=== PATIENT | male | born 1975 | race African-American/Black ===

== ENCOUNTER 2017-08-10 09:16 | Emergency (ER) | payer MEDICAID ==
[~2017-08-10] VITALS: Ht 175.3 cm; Wt 65.8 kg
[~2017-08-10 09:16] MED LIST: BENZ1TAB2; NORCO; RISP2TAB31; TRAM50TA2; TRAZ100T2; XANAX
[2017-08-10] MEDS ORDERED: SODIUM CHLORIDE 0.9% 1,000 ML IV ONE (09:37)
[2017-08-10 09:52] LABS: Basophils # (auto) 0 uL; Basophils % (auto) 0.6 % (0.0-2.0); Eosinophils # (auto) 0 uL; Eosinophils % (auto) 0.3 % (0.0-7.0); Hematocrit 49.4 % (41.0-53.0); Hemoglobin 16.7 g/dL (13.5-17.5); Lymphocytes # (auto) 1.8 uL; Lymphocytes % (auto) 35.4 % (10.0-50.0); Mean Corpuscular Hemoglobin 31.3 pg (28.0-32.0); Mean Corpuscular Hgb Conc. 33.8 g/dL (32.0-36.0); Mean Corpuscular Volume 92.5 fL (80.0-100.0); Monocytes # (auto) 0.5 uL; Monocytes % (auto) 9.6 % (0.0-12.0); Neutrophils # (auto) 2.7 uL; Neutrophils % (auto) 54.1 % (37.0-80.0); Nucleated Red Blood Cells % 0.1 %; Platelet Count (auto) 266 10^3/uL (140-450); Red Blood Cells 5.34 10^6/uL (4.5-5.90); Red Cell Distribution Width 12.5 % (11.8-14.3)
[2017-08-10 10:10] LABS: Albumin 4.4 g/dL (3.4-5.0); BUN/Creatinine Ratio 5.8; Calcium 9.6 mg/dL (8.5-10.1); Potassium 3.6 mmol/L (3.5-5.1)
[2017-08-10 10:13] LABS: Bilirubin, Total 0.6 mg/dL (0.2-1.0); Total Protein 7.9 g/dL (6.4-8.2)
[2017-08-10 10:19] LABS: Urine Bacteria NONE SEEN /hpf (None Seen); Urine Blood Negative /uL (Negative); Urine Mucus FEW (None Seen); Urine Specific Gravity 1.035 (1.001-1.035); Urine WBC 4 /hpf (0 - 3)
[2017-08-10] MEDS ORDERED: IOHEXOL 300 MG/ML 100ML BOTTLE IJ ONE (11:58)
[2017-08-10] MEDS ORDERED: NALBUPHINE HCL 10 MG/1ml INJECTION IV ONE (12:15)
[2017-08-10 13:25] VITALS: BP 126/76
[2017-08-10 14:26] LABS: Amphetamine Screen, Urine NEGATIVE (NEGATIVE); Barbiturate Scree,Urine NEGATIVE (NEGATIVE); Benzodiazephine Screen, Urine NEGATIVE (NEGATIVE); Cannabinoid Screen, Urine POSITIVE (NEGATIVE); Cocaine Screen, Urine NEGATIVE (NEGATIVE); Opiate Scree,Urine NEGATIVE (NEGATIVE); Phencyclidine Screen, Urine NEGATIVE (NEGATIVE)
== END 2017-08-10 13:51 | disposition home or self-care (01) ==
LOC: ER 09:16
DX: E86.0 Dehydration (principal); F17.210 Nicotine dependence, cigarettes, uncomplicated
CPT/HCPCS: 36415; 71046; 74177; 80053; 80307; 81001; 82962; 85025; 96361; 96374; 99285; J2300; J7030; Q9967

== ENCOUNTER 2017-08-28 11:11 | Emergency (ER) | payer MEDICAID ==
[~2017-08-28] VITALS: Ht 175.3 cm; Wt 65.8 kg
[2017-08-28] MEDS ORDERED: PANTOPRAZOLE 40 MG/10 ML VIAL IV STA (11:45)
[2017-08-28] MEDS ORDERED: PROCHLORPERAZINE EDISYLATE 5 MG/ML 2ML VIAL IV ONE (11:45)
[2017-08-28 12:20] LABS: Basophils # (auto) 0 uL; Basophils % (auto) 0.6 % (0.0-2.0); Eosinophils # (auto) 0.1 uL; Eosinophils % (auto) 0.9 % (0.0-7.0); Hematocrit 46.9 % (41.0-53.0); Lymphocytes % (auto) 36.8 % (10.0-50.0); Mean Corpuscular Hemoglobin 31.5 pg (28.0-32.0); Mean Corpuscular Volume 92.6 fL (80.0-100.0); Monocytes # (auto) 0.4 uL; Monocytes % (auto) 7.7 % (0.0-12.0); Neutrophils # (auto) 2.9 uL; Nucleated Red Blood Cells % 0.2 %; Platelet Count (auto) 264 10^3/uL (140-450); Red Blood Cells 5.07 10^6/uL (4.5-5.90); Red Cell Distribution Width 12.7 % (11.8-14.3); White Blood Cell 5.4 10^3/uL (4.4-10.8)
[2017-08-28] MEDS ORDERED: diphenhdrAMINE HCL 50 MG/1 ML VL ONE (12:35)
[2017-08-28 12:37] LABS: Albumin 4.3 g/dL (3.4-5.0); BUN/Creatinine Ratio 10.5; Bilirubin, Total 0.5 mg/dL (0.2-1.0); Calcium 8.8 mg/dL (8.5-10.1); Potassium 3.8 mmol/L (3.5-5.1)
[2017-08-28] MEDS ORDERED: diphenhdrAMINE HCL 50 MG/1 ML VL IV ONE (12:45)
[2017-08-28 13:09] VITALS: BP 128/63
== END 2017-08-28 13:16 | disposition home or self-care (01) ==
LOC: ER 11:11 → EDBD 11:11 → ER 13:16
DX: R10.13 Epigastric pain (principal); E86.0 Dehydration; F12.10 Cannabis abuse, uncomplicated; F17.210 Nicotine dependence, cigarettes, uncomplicated
CPT/HCPCS: 36415; 80053; 82150; 83690; 85025; 94761; 96374; 96375; 99284; C9113; J0780; J1200

== ENCOUNTER 2018-02-16 16:48 | Emergency (ER) | payer MEDICAID ==
[~2018-02-16] VITALS: Ht 175.3 cm; Wt 68.0 kg
[2018-02-16] MEDS ORDERED: HYDROcodone-ACET 5/325MG TAB PO ONE (21:00)
[2018-02-16 21:24] VITALS: BP 122/74
== END 2018-02-16 21:24 | disposition home or self-care (01) ==
LOC: EDBD 16:48 → EDUNIT# 16:48 → ER 16:50
DX: S80.12XA Contusion of left lower leg, initial encounter (principal); F17.210 Nicotine dependence, cigarettes, uncomplicated; Z79.899 Other long term (current) drug therapy; W18.49XA Other slipping, tripping and stumbling without falling, initial encounter; Y93.89 Activity, other specified; Y99.8 Other external cause status; Y92.89 Other specified places as the place of occurrence of the external cause
CPT/HCPCS: 73590

== ENCOUNTER 2018-07-20 13:55 | Emergency (ER) | payer MEDICAID ==
[~2018-07-20] VITALS: Ht 175.3 cm; Wt 61.2 kg
[2018-07-20 14:38] LABS: Basophils # (auto) 0 uL; Basophils % (auto) 0.9 % (0.0-2.0); Eosinophils # (auto) 0.1 uL; Eosinophils % (auto) 1.6 % (0.0-7.0); Hematocrit 48.5 % (41.0-53.0); Hemoglobin 16.2 g/dL (13.5-17.5); Lymphocytes % (auto) 44.9 % (10.0-50.0); Mean Corpuscular Hemoglobin 31.6 pg (28.0-32.0); Mean Corpuscular Hgb Conc. 33.5 g/dL (32.0-36.0); Mean Corpuscular Volume 94.3 fL (80.0-100.0); Monocytes # (auto) 0.5 uL; Neutrophils # (auto) 1.8 uL; Neutrophils % (auto) 41.6 % (37.0-80.0); Nucleated Red Blood Cells % 0.2 %; Platelet Count (auto) 269 10^3/uL (140-450); Red Blood Cells 5.15 10^6/uL (4.5-5.90); Red Cell Distribution Width 12.4 % (11.8-14.3); White Blood Cell 4.3 10^3/uL (4.4-10.8)
[2018-07-20 14:44] LABS: Alanine Aminotransferase 24 U/L (16-61); Albumin 3.9 g/dL (3.4-5.0); Amylase 76 U/L (25-115); Anion Gap 1 (5-15); Aspartate Aminotransferase 15 U/L (15-37); Blood Urea Nitrogen 9 mg/dL (7-18); Calcium 8.5 mg/dL (8.5-10.1); Carbon Dioxide 31 mmol/L (21-32); Chloride 107 mmol/L (98-107); Glucose 54 mg/dL (74-106); Lipase 213 U/L (73-393); Potassium 3.8 mmol/L (3.5-5.1); Sodium 139 mmol/L (136-145)
[2018-07-20 14:47] LABS: Alkaline Phosphatase 59 U/L (45-117); BUN/Creatinine Ratio 8.3; Bilirubin, Total 0.4 mg/dL (0.2-1.0); GFR African American > 60 mL/min; GFR Non-African American > 60 mL/min; Total Protein 7.2 g/dL (6.4-8.2)
[2018-07-20] MEDS ORDERED: KETOROLAC TROMETH 60MG/2ML VIAL IM ONE (15:15)
[2018-07-20] MEDS ORDERED: ONDANSETRON ODT 4 MG TAB PO ONE (15:15)
[2018-07-20 16:07] LABS: Alcohol, Urine < 3.0 mg/dL (0-5); Amphetamine Screen, Urine NEGATIVE (NEGATIVE); Barbiturate Scree,Urine NEGATIVE (NEGATIVE); Benzodiazephine Screen, Urine NEGATIVE (NEGATIVE); Cannabinoid Screen, Urine POSITIVE (NEGATIVE); Cocaine Screen, Urine NEGATIVE (NEGATIVE); Opiate Scree,Urine NEGATIVE (NEGATIVE); Phencyclidine Screen, Urine NEGATIVE (NEGATIVE)
[2018-07-20 16:15] LABS: Urine Bacteria NONE SEEN /hpf (None Seen); Urine Blood Negative /uL (Negative); Urine Mucus FEW (None Seen); Urine WBC 1 /hpf (0 - 3)
[2018-07-20] MEDS ORDERED: ASPirin 81 mg TAB PO ONE (16:30)
[2018-07-20 16:48] VITALS: BP 126/80
== END 2018-07-20 16:56 | disposition home or self-care (01) ==
LOC: ER 14:03
DX: F12.90 Cannabis use, unspecified, uncomplicated (principal); R10.13 Epigastric pain; R11.2 Nausea with vomiting, unspecified; M79.605 Pain in left leg; M79.604 Pain in right leg; F17.210 Nicotine dependence, cigarettes, uncomplicated; Z79.899 Other long term (current) drug therapy
CPT/HCPCS: 36415; 74176; 80053; 80307; 81001; 82150; 83690; 84484; 85025; 93005; 96372; 99284; J1885; Q0162

== ENCOUNTER 2018-07-23 11:21 | Emergency (ER) | payer MEDICAID ==
[~2018-07-23] VITALS: Ht 175.3 cm; Wt 61.2 kg
[2018-07-23] MEDS ORDERED: SODIUM CHLORIDE 0.9% 1,000 ML IV ONE ×2 (11:26)
[2018-07-23] MEDS ORDERED: PROCHLORPERAZINE EDISYLATE 5 MG/ML 2ML VIAL IV ONE (11:30)
[2018-07-23] MEDS ORDERED: HALOPERIDOL LACTATE 5 MG/ML INJ VIAL IM ONE (11:30)
[2018-07-23] MEDS ORDERED: PANTOPRAZOLE 40 MG/10 ML VIAL IV ONE (11:30)
[2018-07-23 11:43] VITALS: BP 140/78
[2018-07-23 12:20] LABS: Basophils # (auto) 0 uL; Basophils % (auto) 0.5 % (0.0-2.0); Eosinophils # (auto) 0 uL; Eosinophils % (auto) 0.8 % (0.0-7.0); Hematocrit 48.6 % (41.0-53.0); Hemoglobin 16.8 g/dL (13.5-17.5); Lymphocytes # (auto) 1.9 uL; Lymphocytes % (auto) 39.6 % (10.0-50.0); Mean Corpuscular Hgb Conc. 34.5 g/dL (32.0-36.0); Mean Corpuscular Volume 92.6 fL (80.0-100.0); Monocytes # (auto) 0.5 uL; Monocytes % (auto) 9.3 % (0.0-12.0); Neutrophils # (auto) 2.4 uL; Neutrophils % (auto) 49.8 % (37.0-80.0); Nucleated Red Blood Cells % 0.1 %; Platelet Count (auto) 262 10^3/uL (140-450); Red Blood Cells 5.25 10^6/uL (4.5-5.90); Red Cell Distribution Width 12.5 % (11.8-14.3); White Blood Cell 4.9 10^3/uL (4.4-10.8)
[2018-07-23 12:38] LABS: Alanine Aminotransferase 28 U/L (16-61); Albumin 3.9 g/dL (3.4-5.0); Amylase 90 U/L (25-115); Anion Gap 8 (5-15); Aspartate Aminotransferase 19 U/L (15-37); BUN/Creatinine Ratio 10.5; Blood Urea Nitrogen 13 mg/dL (7-18); Calcium 8.9 mg/dL (8.5-10.1); Carbon Dioxide 26 mmol/L (21-32); Chloride 105 mmol/L (98-107); GFR African American > 60 mL/min; GFR Non-African American > 60 mL/min; Glucose 98 mg/dL (74-106); Lipase 226 U/L (73-393); Potassium 3.8 mmol/L (3.5-5.1); Sodium 139 mmol/L (136-145)
[2018-07-23 12:40] LABS: Alkaline Phosphatase 61 U/L (45-117); Bilirubin, Total 0.4 mg/dL (0.2-1.0); Total Protein 7.5 g/dL (6.4-8.2)
== END 2018-07-23 12:33 | disposition left against medical advice (07) ==
LOC: EDBD 11:21 → ER 11:21
DX: R11.2 Nausea with vomiting, unspecified (principal); R10.13 Epigastric pain; F17.210 Nicotine dependence, cigarettes, uncomplicated; F12.90 Cannabis use, unspecified, uncomplicated; Z79.899 Other long term (current) drug therapy; Z53.29 Procedure and treatment not carried out because of patient's decision for other reasons
CPT/HCPCS: 36415; 80053; 82150; 83690; 85025; 96361; 96374; 96375; 99283; C9113; J0780; J7030

== ENCOUNTER 2019-02-17 12:21 | Emergency (ER) | payer MEDICAID ==
[~2019-02-17] VITALS: Ht 175.3 cm; Wt 65.8 kg
[2019-02-17] MEDS ORDERED: KETOROLAC TROMETH 30 MG/ML 1ML VIAL IV ONE (15:45)
[2019-02-17] MEDS ORDERED: SODIUM CHLORIDE 0.9% 1,000 ML IV ONE (15:45)
[2019-02-17] MEDS ORDERED: ONDANSETRON HCL 4 MG/2 ML VIAL IV ONE (16:00)
[2019-02-17 16:06] LABS: Basophils # (auto) 0 uL; Basophils % (auto) 0.7 % (0.0-2.0); Eosinophils # (auto) 0 uL; Hematocrit 49.3 % (41.0-53.0); Hemoglobin 16.7 g/dL (13.5-17.5); Lymphocytes # (auto) 1.1 uL; Lymphocytes % (auto) 29.6 % (10.0-50.0); Mean Corpuscular Hemoglobin 31.9 pg (28.0-32.0); Mean Corpuscular Hgb Conc. 33.9 g/dL (32.0-36.0); Mean Corpuscular Volume 94.1 fL (80.0-100.0); Monocytes # (auto) 0.4 uL; Monocytes % (auto) 12.1 % (0.0-12.0); Neutrophils # (auto) 2.1 uL; Neutrophils % (auto) 56.6 % (37.0-80.0); Nucleated Red Blood Cells % 0.1 %; Platelet Count (auto) 222 10^3/uL (140-450); Red Blood Cells 5.24 10^6/uL (4.5-5.90); Red Cell Distribution Width 12.7 % (11.8-14.3); White Blood Cell 3.7 10^3/uL (4.4-10.8)
[2019-02-17 16:18] LABS: BUN/Creatinine Ratio 9.8; Calcium 8.9 mg/dL (8.5-10.1); Potassium 3.9 mmol/L (3.5-5.1)
[2019-02-17 17:18] VITALS: BP 118/72
== END 2019-02-17 17:17 | disposition home or self-care (01) ==
LOC: ER 12:21
DX: R51 Headache (principal); M79.10 Myalgia, unspecified site; R11.2 Nausea with vomiting, unspecified; R42 Dizziness and giddiness; F17.210 Nicotine dependence, cigarettes, uncomplicated; Z79.899 Other long term (current) drug therapy
CPT/HCPCS: 36415; 70450; 80048; 85025; 96361; 96374; 96375; 99284; J1885; J2405; J7030

== ENCOUNTER 2019-11-02 14:01 | Emergency (ER) | payer MEDICAID ==
[~2019-11-02] VITALS: Ht 175.3 cm; Wt 68.0 kg
[~2019-11-02 14:01] MED LIST changes: -TRAZ100T2; +TRAZ100T3
[2019-11-02 14:12] VITALS: BP 106/71
[2019-11-02 14:56] LABS: Basophils # (auto) 0 10 ^3/uL (0-0.2); Basophils % (auto) 0.7 % (0.0-2.0); Eosinophils # (auto) 0 10 ^3/uL (0-0.8); Eosinophils % (auto) 0.3 % (0.0-7.0); Hematocrit 45.1 % (41.0-53.0); Hemoglobin 15.1 g/dL (13.5-17.5); Lymphocytes # (auto) 1.8 10 ^3/uL (0.4-5.4); Lymphocytes % (auto) 33.5 % (10.0-50.0); Mean Corpuscular Hgb Conc. 33.5 g/dL (32.0-36.0); Mean Corpuscular Volume 92.4 fL (80.0-100.0); Monocytes # (auto) 0.4 10 ^3/uL (0-1.3); Monocytes % (auto) 7.9 % (0.0-12.0); Neutrophils # (auto) 3.1 10 ^3/uL (1.6-8.6); Neutrophils % (auto) 57.6 % (37.0-80.0); Nucleated Red Blood Cells % 0.1 %; Platelet Count (auto) 232 10^3/uL (140-450); Red Blood Cells 4.88 10^6/uL (4.5-5.90); Red Cell Distribution Width 13.3 % (11.8-14.3); White Blood Cell 5.5 10^3/uL (4.4-10.8)
[2019-11-02 15:13] LABS: Albumin 3.8 g/dL (3.4-5.0); Anion Gap 4 (5-15); Blood Urea Nitrogen 9 mg/dL (7-18); Calcium 8.7 mg/dL (8.5-10.1); Carbon Dioxide 28 mmol/L (21-32); Chloride 108 mmol/L (98-107); Glucose 84 mg/dL (74-106); Potassium 3.7 mmol/L (3.5-5.1); Sodium 140 mmol/L (136-145)
[2019-11-02 15:19] LABS: Alanine Aminotransferase 16 U/L (16-61); Alkaline Phosphatase 63 U/L (45-117); Aspartate Aminotransferase 14 U/L (15-37); Bilirubin, Total 0.4 mg/dL (0.2-1.0); GFR African American 104 mL/min; GFR Non-African American 86 mL/min; Total Protein 7.3 g/dL (6.4-8.2)
[2019-11-02 16:36] LABS: Urine Amorphous Crystal FEW /hpf (None Seen); Urine Bacteria NONE SEEN /hpf (None Seen); Urine Blood 2+ /uL (Negative); Urine Mucus FEW (None Seen); Urine Specific Gravity 1.027 (1.001-1.035); Urine WBC 4 /hpf (0 - 3)
[2019-11-02 17:16] LABS: Amphetamine Screen, Urine NEGATIVE (NEGATIVE); Barbiturate Scree,Urine NEGATIVE (NEGATIVE); Benzodiazephine Screen, Urine NEGATIVE (NEGATIVE); Cannabinoid Screen, Urine POSITIVE (NEGATIVE); Cocaine Screen, Urine NEGATIVE (NEGATIVE); Opiate Scree,Urine NEGATIVE (NEGATIVE); Phencyclidine Screen, Urine NEGATIVE (NEGATIVE)
== END 2019-11-02 17:58 | disposition left against medical advice (07) ==
LOC: ER 14:01
DX: N39.0 Urinary tract infection, site not specified (principal); K29.70 Gastritis, unspecified, without bleeding; F17.210 Nicotine dependence, cigarettes, uncomplicated; E11.9 Type 2 diabetes mellitus without complications; Z79.899 Other long term (current) drug therapy
CPT/HCPCS: 36415; 71046; 74176; 80053; 80307; 81001; 83880; 84443; 84484; 85025; 93005

== ENCOUNTER 2020-08-19 20:37 | Emergency (ER) | payer MEDICAID ==
[~2020-08-19] VITALS: Ht 175.3 cm; Wt 65.8 kg
[~2020-08-19 20:37] MED LIST changes: +HYDR-4833; -NORCO
[2020-08-19 21:02] VITALS: BP 127/82
[2020-08-19] MEDS ORDERED: ONDANSETRON HCL 4 MG/2 ML VIAL IV ONE (21:30)
[2020-08-19] MEDS ORDERED: MORPHINE SULFATE INJECTION 2 MG/ML SYRG IV ONE (21:30)
== END 2020-08-19 21:53 | disposition short-term general hospital (02) ==
LOC: EDBD 20:37 → ER 20:40
DX: S21.4 Open wound of back wall of thorax with penetration into thoracic cavity (principal); J93.9 Pneumothorax, unspecified; X58.XXXA Exposure to other specified factors, initial encounter; Y93.89 Activity, other specified; Y92.89 Other specified places as the place of occurrence of the external cause; Y99.8 Other external cause status
CPT/HCPCS: 71045; 82962; 96374; 96375; 99285; J2270; J2405